=== PATIENT | female | born 1990 | race Caucasian/White ===

== ENCOUNTER 2022-08-21 07:15 | Inpatient (IN) | payer OTHER ==
[2022-08-21] MEDS: DEXTROSE 5%-LACTATED RINGERS 1,000 ML IV SCH ×2 (10:00→15:30)
[2022-08-21] MEDS ORDERED: PROMETHAZINE HCL 25 MG/1 ML VIAL IVPUSH ONE (10:18)
[2022-08-21] MEDS ORDERED: AMPICILLIN SODIUM 2 GM VIAL ONE (10:27)
[2022-08-21] MEDS ORDERED: OXYTOCIN 30 UNITS in 0.9% NS 30 UNIT/500 ML INFUS.BAG IVPB SCH (10:30)
[2022-08-21] MEDS ORDERED: BUTORPHANOL TARTRATE 1 MG/ML VIAL IVPB ONE (10:30)
[2022-08-21] MEDS ORDERED: AMPICILLIN - 2 GM in SODIUM CHLORIDE 100 ML IVPB ONE (10:30)
[2022-08-21] MEDS ORDERED: PROMETHAZINE HCL 25 MG/1 ML VIAL ONE ×3 (11:58→15:26)
[2022-08-21] MEDS ORDERED: BUTORPHANOL TARTRATE 2 MG/ML VIAL ONE ×3 (11:58→15:25)
[2022-08-21 12:09] LABS: HIV INTERPRETATION NEGATIVE (NEGATIVE)
[2022-08-21 12:19] LABS: BASO % 0.4 % (0-2.0); EOS % 0.1 % (0-4.5); HEMATOCRIT 35.9 % (32.4-45.2); HEMOGLOBIN 11.7 GM/dL (10.7-15.3); LYMPH % 13.9 % (8-40); MCH 29.3 pg (25.7-33.7); MCHC 32.7 g/dl (32.0-36.0); MEAN CELL VOLUME 89.7 fl (80-96); MEAN PLT VOLUME 9.4 fl (7.5-11.1); MONO % 3.8 % (3.8-10.2); NEUT % 81.8 % (42.8-82.8); PLATELET COUNT 265 10^3/uL (134-434); RDW 13.8 % (11.6-15.6); WHITE BLOOD COUNT 11.9 K/mm3 (4.0-10.0)
[2022-08-21 12:26] VITALS: BMI 32.0
[2022-08-21 12:26] LABS: INR 0.97 (0.83-1.09); PROTHROMBIN TIME (PATIENT) 11.2 SEC (9.7-13.0)
[2022-08-21 12:29] LABS: ACTIVATED PTT 27.5 SECONDS (25.2-36.5)
[2022-08-21 12:39] LABS: CALCIUM 9.1 mg/dL (8.5-10.1)
[2022-08-21 12:40] LABS: BLOOD UREA NITROGEN 8.9 mg/dL (7-18)
[2022-08-21 12:43] LABS: CREATININE 0.6 mg/dL (0.55-1.3)
[2022-08-21] MEDS ORDERED: OXYTOCIN 30 UNITS in 0.9% NS 30 UNIT/500 ML INFUS.BAG IVPB ONE (12:49)
[2022-08-21] MEDS ORDERED: AMPICILLIN SODIUM 1 GM VIAL ONE ×2 (14:28→18:43)
[2022-08-21] MEDS: AMPICILLIN - 1 GM in SODIUM CHLORIDE 100 ML IVPB SCH ×2 (14:30→18:35)
[2022-08-21] MEDS ORDERED: PROMETHAZINE HCL 25 MG/1 ML VIAL IVPB ONE (15:10)
[2022-08-21] MEDS ORDERED: BUTORPHANOL TARTRATE 2 MG/ML VIAL IVPB ONE (15:10)
[2022-08-21] MEDS ORDERED: FENTANYL/BUPIVACAINE/NS/PF - PCEA - 50 ML DISP.SYRIN EP ONE (17:58)
[2022-08-21] MEDS ORDERED: OXYTOCIN 20 UNITS in 0.9% NS 20 UNIT/1,000 ML INFUS.BAG IV ONE (19:41)
[2022-08-21] MEDS ORDERED: BENZOCAINE 20% 57 GM BOTTLE TP PRN (21:12)
[2022-08-21] MEDS ORDERED: METHYLERGONOVINE MALEATE 0.2 MG/1 ML AMP IM PRN (21:12)
[2022-08-21] MEDS ORDERED: oxyCODONE HCL 5 MG TABLET PO PRN (21:12)
[2022-08-21] MEDS ORDERED: ACETAMINOPHEN 325 MG TABLET (FP) PO PRN (21:12)
[2022-08-21] MEDS ORDERED: BISACODYL 10 MG SUPP.RECT RC PRN (21:12)
[2022-08-21] MEDS ORDERED: BENZOCAINE 28 GM HEMORRHOIDAL OINTMENT TP PRN (21:12)
[2022-08-21] MEDS ORDERED: WITCH HAZEL 50% (TUCKS) 40 PAD/JAR PAD TP PRN (21:12)
[2022-08-21] MEDS ORDERED: OXYTOCIN 20 UNITS in 0.9% NS 20 UNIT/1,000 ML INFUS.BAG IV SCH (21:15)
[2022-08-21] MEDS ORDERED: NALOXONE HCL 0.4 MG/ML VIAL IVPUSH PRN (21:54)
[2022-08-21] MEDS ORDERED: FENTANYL/BUPIVACAINE/NS/PF - PCEA - 50 ML DISP.SYRIN EP SCH (22:00)
[2022-08-21 22:11] VITALS: RESP 18
[2022-08-22] MEDS: PRENATAL VITAMINS W/ FOLIC ACID TABLET (FP) PO SCH (09:37)
[2022-08-22 10:08] LABS: BASO % 0.4 % (0-2.0); EOS % 0.3 % (0-4.5); HEMOGLOBIN 10.7 GM/dL (10.7-15.3); LYMPH % 13.4 % (8-40); MCH 29.1 pg (25.7-33.7); MCHC 32.5 g/dl (32.0-36.0); MEAN CELL VOLUME 89.5 fl (80-96); MEAN PLT VOLUME 9.1 fl (7.5-11.1); MONO % 4.4 % (3.8-10.2); NEUT % 81.5 % (42.8-82.8); PLATELET COUNT 205 10^3/uL (134-434); RBC 3.69 M/mm3 (3.60-5.2); RDW 13.7 % (11.6-15.6); WHITE BLOOD COUNT 13.8 K/mm3 (4.0-10.0)
[2022-08-22] MEDS: IBUPROFEN 600 MG TABLET (FP) PO PRN ×2 (13:39→17:54)
[2022-08-22] MEDS ORDERED: SENNOSIDES/DOCUSATE COMBO (SENNA PLUS) TABLET (UD) PO PRN (22:00)
[2022-08-23] MEDS: IBUPROFEN 600 MG TABLET (FP) PO PRN (01:46)
[2022-08-23 08:57] VITALS: BP 116/79; TEMP 98
[2022-08-23] MEDS: PRENATAL VITAMINS W/ FOLIC ACID TABLET (FP) PO SCH (08:59)
[2022-08-23 09:10] VITALS: PULSE 105
== END 2022-08-23 16:15 | disposition home or self-care (01) | DRG 807 ==
LOC: JLDR 07:15 → J3W 22:06 → JLDR 22:11 → J3W 22:56
PROVIDERS: ADMIT Obstetrics & Gynecology; ATTEND Obstetrics & Gynecology
PROC: 10E0XZZ Delivery of Products of Conception, External Approach (ICD-10-PCS; principal; 2022-08-21)
PROC: 3E033VJ Introduction of Other Hormone into Peripheral Vein, Percutaneous Approach (ICD-10-PCS; 2022-08-21)
DX: O48.0 Post-term pregnancy (principal); Z37.0 Single live birth; O70.0 First degree perineal laceration during delivery; Z3A.40 40 weeks gestation of pregnancy
CPT/HCPCS: 36415; 59409; 80048; 85025; 85610; 85730; 86780; 86850; 86900; 86901; 87389; C9803-CS; U0003; U0005